=== PATIENT | female | born 1945 | race Caucasian/White ===

== ENCOUNTER 2018-01-09 15:46 | Outpatient (CLI) | payer MEDICARE ==
--- NOTE | 2018-01-09 22:44 | MRI ---
NONCONTRAST MRI LUMBAR SPINE 01/09/18 HISTORY: Lumbar pain. FINDINGS: The retroperitoneal structures demonstrate a normal MRI appearance. Incidental note is made of either a retroaortic left renal vein or circumaortic left renal vein. The conus medullaris is normal in appearance and terminates at the L1-3 level. Multilevel degenerative changes are seen within the lumbar spine. L1-2 level: There is minimal disc bulge present with facet hypertrophic changes. The findings result in minimal narrowing of the central spinal canal. Neural foramina are patent. L2-3 level: There is loss of intervertebral disc height. There is a broad based disc osteophyte compl ex with facet hypertrophic changes and mild ligamentous thickening. There is generalized mild narrowi ng of the central spinal canal with only minimal encroachment on each neural foramen. L3-4 level: There is loss of intervertebral disc height. End plate degenerative changes are noted at this level. There is a broad based disc osteophyte complex and facet hypertrophic changes. There is g eneralized mild narrowing of the central spinal canal as well as mild bilateral neural foraminal narr owing greater on the left. L4-5 level: There is grade I anterolisthesis of L4 on L5 measuring approximately 4 mm. There is loss of intervertebral disc height. There is a broad based disc osteophyte complex with associated central disc protrusion. There are facet hypertrophic changes bilaterally with fluid signal intensity seen i n the facet joints. Findings result in severe narrowing of the central spinal canal at this level. Th ere is mild bilateral neural foraminal narrowing noted. Severe facet hypertrophic changes are noted w ith fluid signal intensity in the facet joints. In addition, there is a fluid signal intensity struct ure seen extending medial to the left facet joint at this level, which extends into the central spina l canal measuring 11 mm. This does result in prominent mass effect on the left anterolateral aspect o f the thecal sac at this level and also narrows the left lateral recess and may affect traversing ner ve roots on the left at this level. This is posterior to the L5 vertebral body. L5-S1 level: There are severe end plate degenerative changes with loss of intervertebral disc height present at this level. There is a broad based disc osteophyte complex noted. There is severe facet hy pertrophic changes present. Findings result in mild bilateral neural foraminal narrowing although the degree of narrowing does approach moderate in severity. Tiny increased T2 weighted fluid signal inte nsity structure is seen posterior to the left side of the facet joint likely related to tiny synovial cyst. There is mild flattening of the anterior aspect of the thecal sac at this level. IMPRESSION: 1. Multilevel degenerative changes in the lumbar spine with findings greatest at the L4-5 level where there is severe narrowing of the central spinal canal. 2. Prominent synovial cyst to the left of midline involving the facet joints at the L4-5 level, which results in mass effect on the thecal sac and narrows the left anterolateral aspect of the theca l sac and may potentially affect traversing nerve roots on the left at this level. POS: LEONA
== END 2018-01-09 15:47 | disposition home or self-care (01) ==
LOC: MRI 15:46
PROVIDERS: ATTEND Neurological Surgery
DX: M54.5 Low back pain (principal); M47.896 Other spondylosis, lumbar region; M48.061 Spinal stenosis, lumbar region without neurogenic claudication; M71.38 Other bursal cyst, other site
CPT/HCPCS: 72148

== ENCOUNTER 2018-06-26 07:18 | Outpatient (CLI) | payer MEDICARE ==
[2018-06-26 16:23] LABS: Hemoglobin 13.6 g/dL (12.0-16.0); Mean Corpuscular HGB CONC 32.3 g/dL (32.0-36.0); Mean Corpuscular Hemoglobin 27.4 pg (27.0-31.0); Mean Corpuscular Volume 84.9 fL (78.0-98.0); Mean Platelet Volume 7.7 fL (7.4-10.4); Platelet Count 220 thou/uL (130-400); RBC Distribution Width 12.9 % (11.5-14.5); Red Blood Cell (RBC) Count 4.97 mill/uL (4.20-5.40); White Blood Cell (WBC) Count 7.8 thou/uL (4.8-10.8)
[2018-06-26 16:31] LABS: Prothrombin Time 12.9 SEC (12.0-14.7)
[2018-06-26 16:47] LABS: Anion Gap 14 mmol/L (10-20); BUN (Urea Nitrogen) 21 mg/dL (9.8-20.1); Calc. Creatinine Clearance 0 mL/min (70-130); Carbon Dioxide 25 mmol/L (23-31); Chloride 102 mmol/L (98-107); Estimated GFR-MDRD 57; Glucose 84 mg/dL (83-110); Potassium 3.9 mmol/L (3.5-5.1); Sodium 137 mmol/L (136-145)
== END 2018-06-26 07:19 | disposition home or self-care (01) ==
LOC: LABBT 07:18
PROVIDERS: ATTEND Surgery
DX: Z01.812 Encounter for preprocedural laboratory examination (principal); M54.16 Radiculopathy, lumbar region; M48.061 Spinal stenosis, lumbar region without neurogenic claudication
CPT/HCPCS: 80048; 85027; 85610; 85730

== ENCOUNTER 2018-06-26 15:00 | Inpatient (IN) | payer MEDICARE ==
[2018-07-03] MEDS ORDERED: Sodium Chloride 0.9% 10 ML ONE (06:42)
[2018-07-03] MEDS ORDERED: Bacitracin Zinc Ointment 30 gm TUBE ONE (06:43)
[2018-07-03] MEDS ORDERED: Thrombin 5000 UNITS/5 ML VIAL ONE (06:43)
[2018-07-03] MEDS ORDERED: Fentanyl 100 MCG/2 ML VIAL ONE ×3 (06:44→10:49)
[2018-07-03] MEDS ORDERED: CEFAZOLIN 2 GM/50 ML BAG ONE (07:07)
[2018-07-03] MEDS ORDERED: Promethazine HCl 25 MG/ML VIAL IM PRN ×2 (10:33→11:33)
[2018-07-03] MEDS ORDERED: Milk Of Magnesia 30 ML UDCUP PO PRN (10:33)
[2018-07-03] MEDS ORDERED: Morphine 4 MG/ML VIAL SLOW IVP PRN (10:33)
[2018-07-03] MEDS ORDERED: Acetaminophen 325 MG TAB PO PRN (10:33)
[2018-07-03] MEDS ORDERED: Bisacodyl 10 MG SUPP PR PRN (10:33)
[2018-07-03] MEDS ORDERED: Mag-Al 1200 mg/1200 mg/30 ML UDCUP PO PRN (10:33)
[2018-07-03] MEDS ORDERED: Fleet Enema 133 ML BOT PR PRN (10:33)
[2018-07-03] MEDS ORDERED: tiZANidine HCl 4 MG TAB PO PRN (10:33)
[2018-07-03] MEDS ORDERED: traMADol HCl 50 MG TAB PO PRN (10:33)
[2018-07-03] MEDS ORDERED: CEFAZOLIN/Water 2 GM/20 ML SYRINGE SLOW IVP SCH (10:45)
--- NOTE | 2018-07-03 11:20 | OP ---
DATE OF PROCEDURE: 07/03/2018 CALL BOX WIRER: Jose David Crouch PA-C. OPERATING ROOM: OR 11. WOUND CLASSIFICATION: Type 1 wound. PREPROCEDURE DIAGNOSES: Multilevel lumbar stenosis with low back pain, lumbar radiculopathy, lumbar disk extrusion, and lumbar synovial cyst. POSTPROCEDURE DIAGNOSES: Multilevel lumbar stenosis with low back pain, lumbar radiculopathy, lumbar disk extrusion, and lumbar synovial cyst. PROCEDURES PERFORMED: 1. Left L3-L4 hemilaminotomy, foraminotomy. 2. L4-L5 right and left-sided lumbar diskectomy. 3. Left L4-L5 synovial cyst resection. 4. L5-S1 laminectomy, partial facetectomy, foraminotomies. 5. Use of operative microscope for microdissection. DESCRIPTION OF PROCEDURE: After informed consent was obtained from the patient, the patient was brought to OR. Proper patient pause and identification were carried out. The wound was then opened with a combination of sharp, monopolar, and blunt dissection. Following sterile cleansing, preparation, and draping, we identified the L3, L4, L5, and S1 dorsal spines, and left L3-L4 hemilaminotomy and foraminotomy were performed. Excellent decompression of left L3 and left L4 nerve root, then L4-L5 laminectomy. Partial facetectomy and foraminotomy were performed for lumbar diskectomy bilaterally. The lumbar L4-L5 synovial cyst was then resected as well, which was obviously densely adherent to the dura. We then turned our attention to L5-S1 laminectomy, partial facetectomy, and foraminotomy. The microscope was used for microdissection. After proper patient pause and identification, the wound was copiously irrigated and closed in anatomic layers. The patient then emerged from anesthesia. Meticulous hemostasis was performed and vancomycin powder was utilized. Job ID: [id number]
[2018-07-03] MEDS ORDERED: Ondansetron HCl/PF 4 MG/2 ML Vial IVP PRN (11:33)
[2018-07-03] MEDS ORDERED: Promethazine HCl 25 MG/ML VIAL SLOW IVP PRN (11:33)
[2018-07-03 15:26] VITALS: BMI 32.0
[2018-07-03] MEDS: CEFAZOLIN 2 GM/50 ML-DEXTROSE 2 GM in Premix Bag 1 BAG IVPB SCH ×2 (15:50→22:41)
[2018-07-03] MEDS: Sodium Chloride 0.9% 1,000 ML IV SCH ×2 (15:51→23:01)
[2018-07-03] MEDS: HYDROcodone/Acetaminophen 7.5/325 mg Tablet PO PRN (19:57)
[2018-07-04] MEDS: HYDROcodone/Acetaminophen 7.5/325 mg Tablet PO PRN ×2 (06:06→10:25)
[2018-07-04 08:09] VITALS: BP 103/61; TEMP 98.1
[2018-07-04] MEDS ORDERED: Prevnar 13-Val Conj/PF 0.5 ML SYRINGE IM ONE (09:00)
[2018-07-04] MEDS ORDERED: Atorvastatin Calcium 10 MG TAB PO SCH (09:00)
[2018-07-04] MEDS ORDERED: Allopurinol 300 MG TAB PO SCH (09:00)
[2018-07-04] MEDS ORDERED: Tamsulosin HCl 0.4 MG CAP PO SCH (09:00)
[2018-07-04] MEDS ORDERED: Polyethylene Glycol 3350 17 GM Packet PO SCH (09:00)
--- NOTE | 2018-07-05 12:49 | DIS ---
DATE OF ADMISSION: 07/03/2018 DATE OF DISCHARGE: 07/04/2018 DISCHARGE DIAGNOSES: 1. Low back pain with lumbar radiculopathy. 2. Lumbar spinal stenosis. HOSPITAL COURSE: Ms. Ward was admitted to undergo a left L3-L4 hemilaminotomy, foraminotomy with L4-L5 laminectomy, bilateral diskectomies, and synovial cystectomy with L5-S1 laminectomy, partial facetectomies, and foraminotomies. The patient's surgery was without complication and she required 1 overnight stay for pain control postoperatively. At the time of discharge, the patient was very pleased with her outcome and had incisional back pain, but otherwise complete resolution of her bilateral lower extremity symptoms. She had good strength in the bilateral lower extremities and met criteria for discharge. She walked with a nonantalgic gait. Appropriate patient education and outpatient followups were provided and again at the time of discharge, the patient was very pleased with her outcome postoperatively. She certainly understands to call the office with questions or concerns prior to her next followup with our office. Job ID: [id number]
== END 2018-07-04 10:35 | disposition home or self-care (01) | DRG 520 ==
LOC: SURG A 07-03 05:58 → SJJU 07-03 12:18
PROVIDERS: ADMIT Surgery; ATTEND Surgery
PROC: 0SB20ZZ Excision of Lumbar Vertebral Disc, Open Approach (ICD-10-PCS; principal; 2018-07-03)
PROC: 01NB0ZZ Release Lumbar Nerve, Open Approach (ICD-10-PCS; 2018-07-03)
PROC: 0QB00ZZ Excision of Lumbar Vertebra, Open Approach (ICD-10-PCS; 2018-07-03)
DX: M48.061 Spinal stenosis, lumbar region without neurogenic claudication (principal); M54.16 Radiculopathy, lumbar region; M71.38 Other bursal cyst, other site; E78.5 Hyperlipidemia, unspecified; I10 Essential (primary) hypertension; M10.9 Gout, unspecified
CPT/HCPCS: 76000; J3010; J3370; J3490

== ENCOUNTER 2022-07-18 07:47 | Outpatient (CLI) | payer MEDICARE | END 2022-07-18 07:48 | disposition home or self-care (01) | LOC: NM 07:47 | PROVIDERS: ATTEND Psychiatry & Neurology Neurology | DX: R26.9 Unspecified abnormalities of gait and mobility (principal) | CPT/HCPCS: 78803; A9584 ×2 ==